=== PATIENT | female | born 1950 | race Caucasian/White ===

== ENCOUNTER 2020-02-01 13:01 | Outpatient (CLI) | payer MEDICARE, OTHER | END 2020-02-01 13:04 | disposition home or self-care (01) | LOC: D.MAMMO 13:01 → EDBD 16:15 → D.MAMMO 16:15 | PROVIDERS: ATTEND Nurse Practitioner Family | DX: Z12.31 Encounter for screening mammogram for malignant neoplasm of breast (principal) ==

== ENCOUNTER → 2020-03-07 07:36 | Outpatient (CLI) | payer MEDICARE, OTHER | END | disposition home or self-care (01) | LOC: D.MRI 07:36 | PROVIDERS: ATTEND Clinical Nurse Specialist Family Health | DX: M48.061 Spinal stenosis, lumbar region without neurogenic claudication (principal) ==

== ENCOUNTER 2020-04-20 10:30 | Emergency (ER) | payer MEDICARE, OTHER ==
[~2020-04-20] VITALS: Ht 157.5 cm; Wt 153.2 kg
[2020-04-20 10:40] VITALS: Ht 157.5 cm; Wt 153.2 kg
[2020-04-20] MEDS ORDERED: NORVASC5 MG (11:26)
[2020-04-20] MEDS ORDERED: PLAVIX75 MG PO (11:26)
[2020-04-20] MEDS ORDERED: VOLTAREN100 GM TOPICAL (11:27)
[2020-04-20] MEDS ORDERED: MOBIC7.5 MG PO (11:27)
[2020-04-20] MEDS ORDERED: NEURONTIN600 MG PO (11:27)
[2020-04-20] MEDS ORDERED: METOPROLOL TART50 MG PO (11:28)
[2020-04-20] MEDS ORDERED: CRESTOR5 MG PO (11:28)
[2020-04-20] MEDS ORDERED: ALDACTONE25 MG PO (11:29)
[2020-04-20] MEDS ORDERED: HYDROCODON-ACE1 EAC7 PO (12:11)
[2020-04-20 12:36] VITALS: BP 137/54
== END 2020-04-20 12:36 | disposition home or self-care (01) ==
LOC: D.ER 10:30
DX: S09.90XA Unspecified injury of head, initial encounter (principal); S50.02XA Contusion of left elbow, initial encounter; S80.02XA Contusion of left knee, initial encounter; I10 Essential (primary) hypertension; W01.190A Fall on same level from slipping, tripping and stumbling with subsequent striking against furniture, initial encounter; Y93.9 Activity, unspecified; Y92.9 Unspecified place or not applicable; Z79.01 Long term (current) use of anticoagulants

== ENCOUNTER → 2020-04-24 08:35 | Outpatient (CLI) | payer MEDICARE, OTHER ==
[2020-04-20 10:40] VITALS: BMI 61.8
--- NOTE | ~2020-04-24 | EC ---
PATIENT:LARISA ELLIS DATE OF SERVICE: 04/24/20 SEX: F MEDICAL RECORD: [id number] DATE OF : 52 [facility] AGE OF PATIENT: 69 ADMISSION DATE: 04/24/20 REFERRING PHYSICIAN: INTERPRETING PHYSICIAN: ZEFERINO CAMPA MD ECHOCARDIOGRAM REPORT ECHO CHARGES 4 ECHO COMPLETE Date: 04/24/20 CLINICAL DIAGNOSIS: ASSESS AORITC VAVLE/EF RECENT EDEMA ECHOCARDIOGRAPHIC MEASUREMENTS (adult normal given) AC root (d.<3.7cm) 2.7 cm LV Septum d (<1.2 cm> 1.3 cm Valve Excursion 1.2 cm LV Septum (systole) 1.6 cm Left Atria (s.<4.0cm> 4.4 cm LVPW d(<1.2cm) 1.3 cm RV (d.<2.3cm) 4.2 cm LVPW (sytole) 1.6 cm LV diastole(<5.6CM) 4.6 cm MV E-F(>70mm/sec) cm LV systole 3.3 cm LVOT Diameter 1.7 cm MV exc.(>10mm) 1.5 cm Est.ejection fraction (50-75%) % DOPPLER: LVIT cm/sec A 65.0 cm/sec E 77.0 cm/sec LA cm/sec RVSP 14 mmHg LVOT 124 cm/sec AOP1/2T m/s Asc. Ao 143 cm/sec RVOT 111 cm/sec RA cm/sec PA 126 cm/sec AV Gradient Peak 8.19 mmHg AV Mean 4.03 mmHg AV Area 2.5 cm MV Gradient Peak 3.51 mmHg MV Mean 1.68 mmHg MV Area cm COMMENTS: Instrument Operator: 2 TRISHA SINGH Legal Administrative Assistant: 3 Dr. Claudio TAPE# PACS Pericardial Effusion N DATE OF SERVICE: Adequate 2D, color flow imaging, spectral Doppler, and M-Mode. Mild LVH. LV internal dimensions are normal. Wall motion is normal. EF is greater than or equal to 55%. Aortic valve is sclerotic. No evidence of stenosis by Doppler interrogation. Left atrium is dilated at 4.4 cm. Mitral valve shows no prolapse. Trace MR. Right-sided chambers are grossly normal. Trace TR. ECHOCARDIOGRAM REPORT [id number] LARISA ELLIS TRANSINT:[id number] Voice Confirmation ID: [id number] DOCUMENT ID: [id number] ZEFERINO CAMPA MD CC: [id number] DICTATION DATE: 04/25/20 1519 COAT CHECKER: 04/25/20 2359 DEP CLI 04/24/20 [place] [id number] [place] [id number]
[~2020-04-24 08:35] MED LIST: ALDACTONE25 MG PO; CRESTOR5 MG PO; HYDROCODON-ACE1 EAC7 PO; METOPROLOL TART50 MG PO; MOBIC7.5 MG PO; NEURONTIN600 MG PO; NORVASC5 MG; PLAVIX75 MG PO; VOLTAREN100 GM TOPICAL
== END | disposition home or self-care (01) ==
LOC: D.HCCECHO 08:30
PROVIDERS: ATTEND Internal Medicine Interventional Cardiology
DX: I35.0 Nonrheumatic aortic (valve) stenosis (principal)

== ENCOUNTER 2020-11-02 18:40 | Inpatient (IN) | payer MEDICARE, OTHER ==
[~2020-11-02] VITALS: Ht 157.5 cm; Wt 147.7 kg
[2020-11-02 20:07] LABS: BASOPHILS 0.1 % (0-2); EOSINOPHILS 0.8 % (0-7); HEMATOCRIT 42.4 % (36.0-48.0); HEMOGLOBIN 14.2 g/dL (12-16); IMMATURE GRANULOCYTES 0.5 % (0-5); LYMPHOCYTE ABS# 1.48 10x3/uL (1.18-3.74); LYMPHOCYTES 8.5 % (15-50); MCH 30.1 pg (26.0-34.0); MCHC 33.5 g/dL (31.0-37.0); MEAN PLATELET VOLUME 11.1 fL (7.4-10.4); MONOCYTES 5.1 % (2-11); NEUTROPHIL ABS# 14.72 10x3/uL (1.56-6.13); PLATELET COUNT 189 10x3/uL (130-400); RBC 4.71 10x6/uL (4.00-5.40); RDW 13.2 % (11.5-14.5); WBC 17.3 10x3/uL (4.8-10.8)
[2020-11-02 20:53] LABS: ANION GAP 19.1 mmol/L (8-16); CREATININE - SERUM 1.3 mg/dL (0.6-1.3); POTASSIUM - SERUM 4.1 mmol/L (3.5-5.1)
[2020-11-02 21:25] LABS: NITRITE POSITIVE (NEGATIVE)
[2020-11-02 21:26] LABS: BILIRUBIN NEGATIVE (NEGATIVE); KETONE NEGATIVE (NEGATIVE); SQUAMOUS EPITHELIAL 0-5 HPF (0-4); UROBILINOGEN NORMAL mg/dL (< 2)
[2020-11-02 21:27] LABS: BACTERIA MODERATE HPF (NONE SEEN)
--- NOTE | 2020-11-03 00:12 | NUR ---
PT TO ROOM FROM ER
[2020-11-03 00:28] VITALS: BP 129/81
[2020-11-03 00:51] VITALS: BP 129/81; Ht 157.5 cm; Wt 147.7 kg
--- NOTE | 2020-11-03 03:27 | NUR ---
RECEIVED PATIENT FROM ER WITH UTI, STEPHANIE. SHE HAS A KIDNEY STONE IN THE URTEROVERSICAL JUNCTION. ON ARRIVAL SHE WAS AWAKE, ALERT AND ORIENTED X 3. SHE WAS GIVEN LATER IN THE SHIFT MORPINE IV FOR PAIN AND SHE IS CURRENTLY RESTING NOW. BED IN LOW POSITION. SIDE RAILS UP X 2, CALL LIGHT WITHIN REACH.
--- NOTE | 2020-11-03 04:55 | NUR ---
REPORT GIVEN TO BURT, PATIENT BEING TRANSFERRED 2200.
[2020-11-03 06:33] LABS: ANION GAP 14.8 mmol/L (8-16); CALCIUM 8.4 mg/dL (8.5-10.1); CARBON DIOXIDE 25.3 mmol/L (21.0-32.0); CREATININE - SERUM 1.2 mg/dL (0.6-1.3); MAGNESIUM - SERUM 1.7 mg/dL (1.8-2.4); PHOSPHOROUS 4.1 mg/dL (2.5-4.9); POTASSIUM - SERUM 4.1 mmol/L (3.5-5.1)
[2020-11-03 06:54] LABS: BASOPHILS 0.1 % (0-2); EOSINOPHILS 0.3 % (0-7); HEMATOCRIT 38.6 % (36.0-48.0); HEMOGLOBIN 12.5 g/dL (12-16); IMMATURE GRANULOCYTES 0.2 % (0-5); LYMPHOCYTE ABS# 0.38 10x3/uL (1.18-3.74); LYMPHOCYTES 2.7 % (15-50); MCH 29.6 pg (26.0-34.0); MCHC 32.4 g/dL (31.0-37.0); MCV 91.5 fL (80.0-100.0); MEAN PLATELET VOLUME 10.8 fL (7.4-10.4); MONOCYTES 3.3 % (2-11); NEUTROPHIL ABS# 13.19 10x3/uL (1.56-6.13); NEUTROPHILS 93.4 % (40-80); PLATELET COUNT 162 10x3/uL (130-400); RBC 4.22 10x6/uL (4.00-5.40); RDW 13.3 % (11.5-14.5); WBC 14.1 10x3/uL (4.8-10.8)
[2020-11-03 06:57] LABS: APTT 26.7 SECONDS (22.8-39.4)
[2020-11-03 06:58] LABS: INR 1.16 (0.85-1.17); PROTIME 13.7 SECONDS (11.6-15.0)
[2020-11-03 08:46] VITALS: BP 111/46
--- NOTE | 2020-11-03 10:41 | NUR ---
0700 BEDSIDE REPORT RECEIVED AWAKE ALERT ASSIST X 1 TO BSC VOIDED REPOSITIONED IN BED TO EAT BREAKFAST
[2020-11-03 12:00] VITALS: BP 127/61
--- NOTE | 2020-11-03 15:37 | NUR ---
1000 TOMLIN INSERTED BY STUDENT INSTRUCTOR WITH GLYNN URINE IN RETURN STAT LOCK PLACED
--- NOTE | 2020-11-03 15:39 | NUR ---
1300 SPOUSE BROUGHT PTS C-PAP AND CARLYLE BOLAND FROM [facility] SPOUSE PUT THE HOSE ON PT
[2020-11-03 17:11] VITALS: BP 121/50
[2020-11-03 21:13] VITALS: BP 121/56
[2020-11-04 00:38] VITALS: BP 130/50
--- NOTE | 2020-11-04 02:29 | NUR ---
Assumed care of pt after report/rounds last evening. Pt's Spouse and daughter in room. Pt was c/o pain to RAC IV site on rounds with day nurse. IV fluids shut off. No increased warmth, edema or increased bruising around site. Resited to Lt upper arm on 2nd try. First attempt to LFA was unsuccessful. IV fuids currently infusing per order without s/sx of infiltrate or c/o pain/discomfort. Pt continues on O2 via NC with RT assisting her to set up CPAP from home last noc and administer breahing treatment as pt coughing with IS use. Thorne remains patent but urine remains dark carlos and concentrated. Only c/o pain initially in night. Resting in bed at this time and has had no further c/o pain/discomfort.
--- NOTE | 2020-11-04 02:48 | NUR ---
Pt's daughter brought in all pills from home. Did discuss the importance of Nursing administering medications so provider and staff know what pt is taking. Both daughter and pt verbalized understanding.
[2020-11-04 05:24] VITALS: BP 121/47
[2020-11-04 08:14] LABS: BASOPHILS 0.1 % (0-2); EOSINOPHILS 0.7 % (0-7); HEMATOCRIT 34.3 % (36.0-48.0); HEMOGLOBIN 11.1 g/dL (12-16); IMMATURE GRANULOCYTES 0.4 % (0-5); LYMPHOCYTE ABS# 0.63 10x3/uL (1.18-3.74); LYMPHOCYTES 5.9 % (15-50); MCH 29.7 pg (26.0-34.0); MCHC 32.4 g/dL (31.0-37.0); MCV 91.7 fL (80.0-100.0); MEAN PLATELET VOLUME 10.3 fL (7.4-10.4); MONOCYTES 2.2 % (2-11); NEUTROPHILS 90.7 % (40-80); PLATELET COUNT 134 10x3/uL (130-400); RBC 3.74 10x6/uL (4.00-5.40); RDW 13.2 % (11.5-14.5); WBC 10.7 10x3/uL (4.8-10.8)
[2020-11-04 08:31] LABS: ANION GAP 11.6 mmol/L (8-16); CALCIUM 8.4 mg/dL (8.5-10.1); CARBON DIOXIDE 24.6 mmol/L (21.0-32.0); MAGNESIUM - SERUM 1.9 mg/dL (1.8-2.4); POTASSIUM - SERUM 4.2 mmol/L (3.5-5.1)
[2020-11-04 08:32] LABS: PHOSPHOROUS 2.9 mg/dL (2.5-4.9)
[2020-11-04 09:29] VITALS: BP 124/83
[2020-11-04 13:36] VITALS: BP 140/78
[2020-11-04 14:22] VITALS: BP 140/78
[2020-11-04 19:04] VITALS: BP 159/79
--- NOTE | 2020-11-05 03:45 | NUR ---
Assumed care of pt after report/rounds. Pt remains A&OX4 and verbalizes wants/needs clearly and without dfficulty or hesitation. Pt's spouse and daughter in with her at begining of shift and left around 2300. Pt's IV continues to infuse through patent IV site with dressing changed to ensure maintenance of same. There is some bruising around IV site and prior sites. Pt continues to utilize CPAP at night and working with RT. Exp. wheeze heard on auscultation to BUL's. Pt did begin having a productive cough but, it is clear and has sputum collection container. Pt's easton remains patent and urine is clear now and much less concentrated. Pt teaching re:increase in BP med. Pt was caught trying to self transfer. Safety teaching done. In bed resting at this time. No c/o pain/discomfort.
[2020-11-05 05:28] LABS: BASOPHILS 0 % (0-2); EOSINOPHILS 1.2 % (0-7); HEMATOCRIT 33.9 % (36.0-48.0); HEMOGLOBIN 10.7 g/dL (12-16); IMMATURE GRANULOCYTES 0.2 % (0-5); LYMPHOCYTE ABS# 0.58 10x3/uL (1.18-3.74); LYMPHOCYTES 6.5 % (15-50); MCH 29.2 pg (26.0-34.0); MCHC 31.6 g/dL (31.0-37.0); MCV 92.4 fL (80.0-100.0); MEAN PLATELET VOLUME 10.9 fL (7.4-10.4); MONOCYTES 5.4 % (2-11); NEUTROPHIL ABS# 7.74 10x3/uL (1.56-6.13); NEUTROPHILS 86.7 % (40-80); PLATELET COUNT 138 10x3/uL (130-400); RBC 3.67 10x6/uL (4.00-5.40); RDW 13.3 % (11.5-14.5); WBC 8.9 10x3/uL (4.8-10.8)
[2020-11-05 05:48] LABS: ANION GAP 11.7 mmol/L (8-16); CALCIUM 8.6 mg/dL (8.5-10.1); CARBON DIOXIDE 25.8 mmol/L (21.0-32.0); CREATININE - SERUM 0.9 mg/dL (0.6-1.3); PHOSPHOROUS 3.1 mg/dL (2.5-4.9); POTASSIUM - SERUM 4.5 mmol/L (3.5-5.1)
[2020-11-05 06:42] VITALS: BP 107/47
[2020-11-05 09:47] VITALS: BP 126/65
[2020-11-05 13:51] VITALS: BP 111/40
[2020-11-05 18:20] VITALS: BP 125/94
--- NOTE | 2020-11-05 19:19 | NUR ---
Assumed care of pt after report/rounds. Pt is A&Ox4 and verbalizes wants/needs clearly and without hesitation or difficulty. Pt did recieve a one time dose of lasix IV. Day nurse emptied cath just before administration and pt has had 2100 output of clear yellow fluid since administration but, continues to have coarse sounding julio on auscultation. Pt also significantly changed in ADL's and looking sicker than the last few days with this nurse. Called Bharat, STOREHOUSE CLERK o/c and order rec'd for stat CXR and stopping fluids. Same will be done.
[2020-11-05 22:06] VITALS: BP 133/52
--- NOTE | 2020-11-06 03:57 | NUR ---
Pt has rested well this night. IV continues to remain on hold per order. Did request pain medication this night and effective for pain relief. Cath rmains draining well with clear yellow urine.
[2020-11-06 07:01] LABS: BASOPHILS 0 % (0-2); EOSINOPHILS 1.4 % (0-7); HEMATOCRIT 33.1 % (36.0-48.0); HEMOGLOBIN 10.6 g/dL (12-16); IMMATURE GRANULOCYTES 0.2 % (0-5); LYMPHOCYTE ABS# 0.79 10x3/uL (1.18-3.74); LYMPHOCYTES 8.7 % (15-50); MCH 29.3 pg (26.0-34.0); MCV 91.4 fL (80.0-100.0); MEAN PLATELET VOLUME 10.2 fL (7.4-10.4); MONOCYTES 6.2 % (2-11); NEUTROPHIL ABS# 7.58 10x3/uL (1.56-6.13); NEUTROPHILS 83.5 % (40-80); PLATELET COUNT 146 10x3/uL (130-400); RBC 3.62 10x6/uL (4.00-5.40); RDW 13.1 % (11.5-14.5); WBC 9.1 10x3/uL (4.8-10.8)
[2020-11-06 07:17] LABS: ANION GAP 11.8 mmol/L (8-16); CALCIUM 8.5 mg/dL (8.5-10.1); CARBON DIOXIDE 25.2 mmol/L (21.0-32.0); CREATININE - SERUM 0.9 mg/dL (0.6-1.3); MAGNESIUM - SERUM 1.8 mg/dL (1.8-2.4)
[2020-11-06 08:13] VITALS: BP 130/46
[2020-11-06 12:44] VITALS: BP 134/59
[2020-11-06 17:06] VITALS: BP 122/61
--- NOTE | 2020-11-06 19:16 | NUR ---
1500 - TOMLIN CATHETER REMOVED ORDERED. WILL CONTINUE TO MONITOR.
[2020-11-07] VITALS: BP 108/71
[2020-11-07 04:00] VITALS: BP 130/64
[2020-11-07 06:25] LABS: CALC OSMOLALITY 279 mosm/kg (275-300); CALCIUM 8.7 mg/dL (8.5-10.1); CARBON DIOXIDE 28.3 mmol/L (21.0-32.0); CHLORIDE - SERUM 103 mmol/L (98-107); CREATININE - SERUM 0.8 mg/dL (0.6-1.3); GLUCOSE 129 mg/dL (74-106); MAGNESIUM - SERUM 1.9 mg/dL (1.8-2.4); PHOSPHOROUS 3.9 mg/dL (2.5-4.9); SODIUM 139 mmol/L (136-145); UREA NITROGEN 12 mg/dL (7-18); eGFR NON AFRICAN AMERICAN 75 mL/min (90-120)
[2020-11-07 06:47] LABS: BASOPHILS 0.1 % (0-2); EOSINOPHILS 2.2 % (0-7); HEMOGLOBIN 11.5 g/dL (12-16); IMMATURE GRANULOCYTES 0.6 % (0-5); LYMPHOCYTE ABS# 1.09 10x3/uL (1.18-3.74); LYMPHOCYTES 13.9 % (15-50); MCH 29.7 pg (26.0-34.0); MCHC 32.9 g/dL (31.0-37.0); MCV 90.4 fL (80.0-100.0); MEAN PLATELET VOLUME 10.3 fL (7.4-10.4); MONOCYTES 7.9 % (2-11); NEUTROPHIL ABS# 5.92 10x3/uL (1.56-6.13); NEUTROPHILS 75.3 % (40-80); RBC 3.87 10x6/uL (4.00-5.40); RDW 13.1 % (11.5-14.5); WBC 7.9 10x3/uL (4.8-10.8)
[2020-11-07 06:48] LABS: PLATELET COUNT 178 10x3/uL (130-400)
--- NOTE | 2020-11-07 08:12 | MORECARE ---
CASE MANAGEMENT DISCHARGE SUMMARY PATIENT: LARISA ELLIS UNIT: [id number] ADM DATE: 11/03/20 AGE: 70 : 51 SEX: F ROOM/BED: D.2201 AUTHOR: CHAY DOTY PHYSICIAN: REFERRING PHYSICIAN: MERI DESIR MD DATE OF SERVICE: 11/07/20 Case Management Discharge Planning Summary DCP REVIEW SUMMARY ANTICIPATED D/C DATE: EXPECTED LOS : CASE STATUS: DCP Initiated INITIAL REVIEW: 11/02/2020 INITIAL REVIEWER: Violet Goodwin FINAL DISCHARGE DISPOSITION: : FINAL REVIEWER: FINAL REVIEW DATE: DCP Focus Questions & Answers DCP Screen QUESTION: ANSWER High Risk Factors: : Hosp related to CHF, COPD, DM, End Stage Ds, CVA, CA DCP Evaluation QUESTION: ANSWER Patient gives permission to discuss discharge plans with: (name, relationship and number) : daughter and spouse Patient's ability to cope with chronic illness : c. Inadequate (3+ ED visits in 6 mos., readmits within 30 days, 2+ hospital admissions in 1 yr.) Family / Caregiver's ability to cope with chronic illness: : a. Adequate (ability to meet patient's medical needs, ensures patient attends medical appts.) Physical Status: : Mobility impaired Physical Status: : Compromised skin integrity Living Arrangements: : Home with Spouse/Significant Other Partial Dependence, assistance required for: : Ambulation / Mobility Living arrangements comments: : lives with spouse and daughter Baseline cognitive status: : *Oriented to person, place, situation, time and present Medication Management: : Patient states can afford medications [facility] name([facility]): : [facility] Does Patient have transportation to get home and to follow-up medical appointments when discharged from the hospital? : Yes Comments: : Mar figueroa Would patient like to participate in any Care Coordination programs (if applicable): : Not applicable Does the patient have electricity at home? : Yes Does the patient have running water in their house? : Yes Equipment in use: : Walker - Rollator Equipment in use: : Other Equipment in use: : CPAP Other Equipment comments: : walk in tub compression wraps and lymphedema pump Equipment agency name and contact information: : [facility] [place] [facility] Mental health screen: : No mental health history Psychosocial status: : Independent adult (65+) Abuse/Neglect: : None DCP Re-evaluation QUESTION: ANSWER Would patient like to participate in any Care Coordination programs (if applicable): : Not applicable PATIENT: LARISA ELLIS ENCOUNTER: [id number] MEDICAL RECORD#: [id number] ADMISSION DATE: 11/03/2020 DISCHARGE DATE: ATTENDING MD: MERI PARRY : AGE: 70 MARITAL STATUS: M DC PLAN ID: [id number] FACILITY: [facility] PRINTED ON: 11/07/20 8:12 CT All edits/amendments must be made on the electronic document DICTATION DATE: 11/07/20811 SUPERVISOR COKE HANDLING: ARIA 11/07/20811 RPT#: [id number] DC DATE: STATUS: ADM IN [facility] [address] [place] [address] END OF REPORT
--- NOTE | 2020-11-07 08:24 | MORECARE ---
CASE MANAGEMENT DISCHARGE SUMMARY PATIENT: LARISA ELLIS UNIT: [id number] ADM DATE: 11/03/20 AGE: 70 : 51 SEX: F ROOM/BED: D.2201 AUTHOR: LALITHA,DOC PHYSICIAN: REFERRING PHYSICIAN: MERI DESIR MD DATE OF SERVICE: 11/07/20 Case Management Discharge Planning Summary COMMENTS ENTERED DATE: 11/07/20 8:13 CT COMMENT TYPE: Discharge Planning REVIEWER: Violet Goodwin LATE ENTRY 11/06/20 AT 1215 CM met with patient & adult daughter to complete initial dc planning assessment. CM educated patient on the CM role and verbal consent given by patient to complete assessment. Patient lives at home with her spouse and daughter where she was independent with her care. Patient would like to discuss her discharge plan with her spouse prior to making a decision. Patients PCP is [facility] and she uses [facility] on [address]. There are 3 steps in her home. CM discussed availability of home health, rehab services, and medical equipment. She has a Rollator ( it is in the room ) a walker, lymphedema pump with compression wraps ( [facility]) A home CAP from [facility]. IMM served and explained. AUBREE also signed for the possibility of inpatient rehab. They will let me know on Friday on what they decide. Patient denied known discharge needs at this time. CM will continue to follow and will assist as needed with dc plans/needs. DCP REVIEW SUMMARY ANTICIPATED D/C DATE: EXPECTED LOS : CASE STATUS: DCP Initiated INITIAL REVIEW: 11/02/2020 INITIAL REVIEWER: Violet Goodwin FINAL DISCHARGE DISPOSITION: : FINAL REVIEWER: FINAL REVIEW DATE: DCP Focus Questions & Answers DCP Screen QUESTION: ANSWER High Risk Factors: : Hosp related to CHF, COPD, DM, End Stage Ds, CVA, CA DCP Evaluation QUESTION: ANSWER Patient and/or caregiver agree upon recommended discharge plan? : Yes Family / Caregiver's ability to cope with chronic illness: : a. Adequate (ability to meet patient's medical needs, ensures patient attends medical appts.) Patient's current cognitive status: : *Oriented to person, place, situation, time and present Patient gives permission to discuss discharge plans with: (name, relationship and number) : daughter and spouse Patient's ability to cope with chronic illness : c. Inadequate (3+ ED visits in 6 mos., readmits within 30 days, 2+ hospital admissions in 1 yr.) Alternate discharge plan (if recommended plan not agreed upon by patient and/or caregiver): : home with home health Does the patient have the ability to pay for or attain post discharge needs / services? : Yes Functional screen assessment: : New onset in difficulty in gait, balance, or transfer difficulties Family / Caregiver's ability to cope with chronic illness: : a. Adequate (ability to meet patient's medical needs, ensures patient attends medical appts.) Physical Status: : Mobility impaired Physical Status: : Compromised skin integrity Equipment needed for post hospitalization: : Home Oxygen with Nasal Cannula Is there a likelihood that the patient will require additional services to return to the preadmission environment? : Yes Functional screen comments: : weak,may need rehab Living Arrangements: : Home with Spouse/Significant Other Partial Dependence, assistance required for: : Ambulation / Mobility Other Equipment comments: : may need home o2?? asking for a nebulizer Results of this evaluation have been discussed with: : Children Patient with capacity for self-care or can be cared for in same environment as prior to hospitalization? : Yes Living arrangements comments: : lives with spouse and daughter Baseline cognitive status: : *Oriented to person, place, situation, time and present Physical environment modification needed / anticipated for discharge: : No Medication Management: : Patient states can afford medications Planned post hospital services available for patient? : Yes [facility]acy name(s): : [facility] Planned post hospital services covered by insurance plan? : Yes Does Patient have transportation to get home and to follow-up medical appointments when discharged from the hospital? : Yes Comments: : daughterMar Would patient like to participate in any Care Coordination programs (if applicable): : Not applicable Does the patient have electricity at home? : Yes Does the patient have running water in their house? : Yes Equipment in use: : Walker - Rollator Equipment in use: : Other Equipment in use: : CPAP Other Equipment comments: : walk in tub compression wraps and lymphedema pump Equipment agency name and contact information: : [facility] Mental health screen: : No mental health history Psychosocial status: : Independent adult (65+) Abuse/Neglect: : None DCP Re-evaluation QUESTION: ANSWER Would patient like to participate in any Care Coordination programs (if applicable): : Not applicable PATIENT: LARISA ELLIS ENCOUNTER: [id number] MEDICAL RECORD#: [id number] ADMISSION DATE: 11/03/2020 DISCHARGE DATE: ATTENDING MD: MERI PARRY : AGE: 70 MARITAL STATUS: M DC PLAN ID: [id number] FACILITY: [facility] PRINTED ON: 11/07/20 8:24 CT All edits/amendments must be made on the electronic document DICTATION DATE: 11/07/20822 MESS ATTENDANT CREW: DM 11/07/20822 RPT#: [id number] DC DATE: STATUS: ADM IN [facility] [address] [place] [address] END OF REPORT
--- NOTE | 2020-11-07 10:02 | MORECARE ---
CASE MANAGEMENT DISCHARGE SUMMARY PATIENT: LARISA ELLIS UNIT: [id number] ADM DATE: 11/03/20 AGE: 70 : 51 SEX: F ROOM/BED: D.2201 AUTHOR: LALITHA,DOC PHYSICIAN: REFERRING PHYSICIAN: MERI DESRI MD DATE OF SERVICE: 11/07/20 Case Management Discharge Planning Summary COMMENTS ENTERED DATE: 11/07/20 9:49 CT COMMENT TYPE: Discharge Planning REVIEWER: Violet Goodwin SPOKE WITH PATIENT AND SPOUSE THIS MORNING ABOUT INPATIENT REHAB SHE WOULD LIKE TO STAY HERE AT [facility] FOR REHAB IF POSSIBLE SHE IS WORRIED ABOUT HER SECOND COVID SHOT. SHE STATED THAT SHE IS SUPPOSE TO GET HER 2ND MODERMA VACCINE ON THE OF THIS MONTH. I SPOKE WITH DARIA GAMBLE RN ABOUT THIS CM TO FOLLOW AND ASSIST ENTERED DATE: 11/07/20 8:13 CT COMMENT TYPE: Discharge Planning REVIEWER: Violet Goodwin LATE ENTRY 11/06/20 AT 1215 CM met with patient & adult daughter to complete initial dc planning assessment. CM educated patient on the CM role and verbal consent given by patient to complete assessment. Patient lives at home with her spouse and daughter where she was independent with her care. Patient would like to discuss her discharge plan with her spouse prior to making a decision. Patients PCP is [facility] and she uses [facility] on [address]. There are 3 steps in her home. CM discussed availability of home health, rehab services, and medical equipment. She has a Rollator ( it is in the room ) a walker, lymphedema pump with compression wraps ( [facility]) A home CAP from [facility]. IMM served and explained. AUBREE also signed for the possibility of inpatient rehab. They will let me know on Friday on what they decide. Patient denied known discharge needs at this time. CM will continue to follow and will assist as needed with dc plans/needs. DCP REVIEW SUMMARY ANTICIPATED D/C DATE: EXPECTED LOS : CASE STATUS: DCP Initiated INITIAL REVIEW: 11/02/2020 INITIAL REVIEWER: Violet Christa FINAL DISCHARGE DISPOSITION: : FINAL REVIEWER: FINAL REVIEW DATE: DCP Focus Questions & Answers DCP Screen QUESTION: ANSWER High Risk Factors: : Hosp related to CHF, COPD, DM, End Stage Ds, CVA, CA DCP Evaluation QUESTION: ANSWER Patient and/or caregiver agree upon recommended discharge plan? : Yes Family / Caregiver's ability to cope with chronic illness: : a. Adequate (ability to meet patient's medical needs, ensures patient attends medical appts.) Patient's current cognitive status: : *Oriented to person, place, situation, time and present Patient gives permission to discuss discharge plans with: (name, relationship and number) : daughter and spouse Patient's ability to cope with chronic illness : c. Inadequate (3+ ED visits in 6 mos., readmits within 30 days, 2+ hospital admissions in 1 yr.) Alternate discharge plan (if recommended plan not agreed upon by patient and/or caregiver): : home with home health Does the patient have the ability to pay for or attain post discharge needs / services? : Yes Functional screen assessment: : New onset in difficulty in gait, balance, or transfer difficulties Family / Caregiver's ability to cope with chronic illness: : a. Adequate (ability to meet patient's medical needs, ensures patient attends medical appts.) Physical Status: : Mobility impaired Physical Status: : Compromised skin integrity Equipment needed for post hospitalization: : Home Oxygen with Nasal Cannula Is there a likelihood that the patient will require additional services to return to the preadmission environment? : Yes Functional screen comments: : weak,may need rehab Living Arrangements: : Home with Spouse/Significant Other Partial Dependence, assistance required for: : Ambulation / Mobility Other Equipment comments: : may need home o2?? asking for a nebulizer Results of this evaluation have been discussed with: : Children Patient with capacity for self-care or can be cared for in same environment as prior to hospitalization? : Yes Living arrangements comments: : lives with spouse and daughter Baseline cognitive status: : *Oriented to person, place, situation, time and present Physical environment modification needed / anticipated for discharge: : No Medication Management: : Patient states can afford medications Planned post hospital services available for patient? : Yes Pharm[facility]): : [facility] Planned post hospital services covered by insurance plan? : Yes Does Patient have transportation to get home and to follow-up medical appointments when discharged from the hospital? : Yes Comments: : daughterMar Would patient like to participate in any Care Coordination programs (if applicable): : Not applicable Does the patient have electricity at home? : Yes Does the patient have running water in their house? : Yes Equipment in use: : Walker - Rollator Equipment in use: : Other Equipment in use: : CPAP Other Equipment comments: : walk in tub compression wraps and lymphedema pump Equipment agency name and contact information: : [facility] Mental health screen: : No mental health history Psychosocial status: : Independent adult (65+) Abuse/Neglect: : None DCP Re-evaluation QUESTION: ANSWER Would patient like to participate in any Care Coordination programs (if applicable): : Not applicable PATIENT: LARISA ELLIS ENCOUNTER: [id number] MEDICAL RECORD#: [id number] ADMISSION DATE: 11/03/2020 DISCHARGE DATE: ATTENDING MD: MERI PARRY : AGE: 70 MARITAL STATUS: M DC PLAN ID: [id number] FACILITY: [facility] PRINTED ON: 11/07/20 10:02 CT All edits/amendments must be made on the electronic document DICTATION DATE: 11/07/20 1002 CLIENT CONSULTANT: ARIA 11/07/20 1002 RPT#: [id number] DC DATE: STATUS: ADM IN [facility] [address] [place] [address] END OF REPORT
[2020-11-07 10:23] VITALS: BP 146/81
--- NOTE | 2020-11-07 10:36 | MORECARE ---
CASE MANAGEMENT DISCHARGE SUMMARY PATIENT: LARISA ELLIS UNIT: [id number] ADM DATE: 11/03/20 AGE: 70 : 51 SEX: F ROOM/BED: D.2201 AUTHOR: LALITHA,DOC PHYSICIAN: REFERRING PHYSICIAN: MERI DESIR MD DATE OF SERVICE: 11/07/20 Case Management Discharge Planning Summary COMMENTS ENTERED DATE: 11/07/20 9:49 CT COMMENT TYPE: Discharge Planning REVIEWER: Violet Goodwin SPOKE WITH PATIENT AND SPOUSE THIS MORNING ABOUT INPATIENT REHAB SHE WOULD LIKE TO STAY HERE AT [facility] FOR REHAB IF POSSIBLE SHE IS WORRIED ABOUT HER SECOND COVID SHOT. SHE STATED THAT SHE IS SUPPOSE TO GET HER 2ND MODERMA VACCINE ON THE OF THIS MONTH. I SPOKE WITH DARIA GAMBLE RN ABOUT THIS CM TO FOLLOW AND ASSIST ENTERED DATE: 11/07/20 8:13 CT COMMENT TYPE: Discharge Planning REVIEWER: Violet Goodwin LATE ENTRY 11/06/20 AT 1215 CM met with patient & adult daughter to complete initial dc planning assessment. CM educated patient on the CM role and verbal consent given by patient to complete assessment. Patient lives at home with her spouse and daughter where she was independent with her care. Patient would like to discuss her discharge plan with her spouse prior to making a decision. Patients PCP is Radha Pop APN and she uses [facility] on [address] There are 3 steps in her home. CM discussed availability of home health, rehab services, and medical equipment. She has a Rollator ( it is in the room ) a walker, lymphedema pump with compression wraps ( [facility]) A home CAP from [facility]. IMM served and explained. AURBEE also signed for the possibility of inpatient rehab. They will let me know on Friday on what they decide. Patient denied known discharge needs at this time. CM will continue to follow and will assist as needed with dc plans/needs. DCP REVIEW SUMMARY ANTICIPATED D/C DATE: EXPECTED LOS : CASE STATUS: DCP Initiated INITIAL REVIEW: 11/02/2020 INITIAL REVIEWER: Violet Christa FINAL DISCHARGE DISPOSITION: : FINAL REVIEWER: FINAL REVIEW DATE: DCP Focus Questions & Answers DCP Screen QUESTION: ANSWER High Risk Factors: : Hosp related to CHF, COPD, DM, End Stage Ds, CVA, CA DCP Evaluation QUESTION: ANSWER Patient and/or caregiver agree upon recommended discharge plan? : Yes Family / Caregiver's ability to cope with chronic illness: : a. Adequate (ability to meet patient's medical needs, ensures patient attends medical appts.) Patient's current cognitive status: : *Oriented to person, place, situation, time and present Patient gives permission to discuss discharge plans with: (name, relationship and number) : daughter and spouse Patient's ability to cope with chronic illness : c. Inadequate (3+ ED visits in 6 mos., readmits within 30 days, 2+ hospital admissions in 1 yr.) Alternate discharge plan (if recommended plan not agreed upon by patient and/or caregiver): : home with home health Does the patient have the ability to pay for or attain post discharge needs / services? : Yes Functional screen assessment: : New onset in difficulty in gait, balance, or transfer difficulties Family / Caregiver's ability to cope with chronic illness: : a. Adequate (ability to meet patient's medical needs, ensures patient attends medical appts.) Physical Status: : Mobility impaired Physical Status: : Compromised skin integrity Equipment needed for post hospitalization: : Home Oxygen with Nasal Cannula Is there a likelihood that the patient will require additional services to return to the preadmission environment? : Yes Functional screen comments: : weak,may need rehab Living Arrangements: : Home with Spouse/Significant Other Partial Dependence, assistance required for: : Ambulation / Mobility Other Equipment comments: : may need home o2?? asking for a nebulizer Results of this evaluation have been discussed with: : Children Patient with capacity for self-care or can be cared for in same environment as prior to hospitalization? : Yes Living arrangements comments: : lives with spouse and daughter Baseline cognitive status: : *Oriented to person, place, situation, time and present Physical environment modification needed / anticipated for discharge: : No Medication Management: : Patient states can afford medications Planned post hospital services available for patient? : Yes Pharmacy name(s): : [facility] Planned post hospital services covered by insurance plan? : Yes Does Patient have transportation to get home and to follow-up medical appointments when discharged from the hospital? : Yes Comments: : daughterMar Would patient like to participate in any Care Coordination programs (if applicable): : Not applicable Does the patient have electricity at home? : Yes Does the patient have running water in their house? : Yes Equipment in use: : Walker - Rollator Equipment in use: : Other Equipment in use: : CPAP Other Equipment comments: : walk in tub compression wraps and lymphedema pump Equipment agency name and contact information: : [employer]- cpap Mental health screen: : No mental health history Psychosocial status: : Independent adult (65+) Abuse/Neglect: : None DCP Re-evaluation QUESTION: ANSWER Would patient like to participate in any Care Coordination programs (if applicable): : Not applicable PATIENT: LARISA ELLIS ENCOUNTER: [id number] MEDICAL RECORD#: [id number] ADMISSION DATE: 11/03/2020 DISCHARGE DATE: ATTENDING MD: MERI PARRY : AGE: 70 MARITAL STATUS: M DC PLAN ID: [id number] FACILITY: [facility] PRINTED ON: 11/07/20 10:36 CT All edits/amendments must be made on the electronic document DICTATION DATE: 11/07/20 1036 ENERGY SALES CONSULTANT: ARIA 11/07/20 1036 RPT#: [id number] DC DATE: STATUS: ADM IN [facility] [address] [place] [address] END OF REPORT
--- NOTE | 2020-11-07 11:36 | NUR ---
REHAB PRESCREEN RECEIVED. UPON REVIEW OF HER CHART, PATIENT DOES NOT MEET THE INPATIENT CRITERIA. SHE DOES NOT SHOW A NEED FOR 3 HOURS OF THERAPY A DAY AND FOR A PHYSICIAN TO SEE HER 3-5 DAYS OF THE WEEK. I HAVE SPOKEN WITH KATE IN REGARDS TO THIS. THANK YOU FOR THE REFERRAL. DARIA GAMBLE RN CLINICAL LIAISON, INPATIENT REHAB.
--- NOTE | 2020-11-07 13:28 | NUR ---
O2 AT 4, PATIENT MIN ASST TO GET UP TO BEDSIDE AND TO STAND. PATIENT WALKED AROUND ROOM FOR 20 FEET USING CANE WITH MIN ASST. PATIENT NEEDED ASST WITH HER LEGS TO GET THEM BACK UP ON THE BED WHEN LAYING BACK DOWN.
--- NOTE | 2020-11-07 13:54 | MORECARE ---
CASE MANAGEMENT DISCHARGE SUMMARY PATIENT: LARISA ELLIS UNIT: [id number] ADM DATE: 11/03/20 AGE: 70 : 51 SEX: F ROOM/BED: D.2201 AUTHOR: LALITHA,DOC PHYSICIAN: REFERRING PHYSICIAN: MERI DESIR MD DATE OF SERVICE: 11/07/20 Case Management Discharge Planning Summary COMMENTS ENTERED DATE: 11/07/20 13:44 CT COMMENT TYPE: Discharge Planning REVIEWER: Violet Goodwin OUR INPATIENT REHAB WILL NOT ACCEPT THE PATIENT, I HAVE SENT IT TO [facility] TO SEE IF SHE IS A CANDIDATE FOR THEM CM TO FOLLOW AND ASSIST ENTERED DATE: 11/07/20 9:49 CT COMMENT TYPE: Discharge Planning REVIEWER: Violet Christa SPOKE WITH PATIENT AND SPOUSE THIS MORNING ABOUT INPATIENT REHAB SHE WOULD LIKE TO STAY HERE AT [facility] FOR REHAB IF POSSIBLE SHE IS WORRIED ABOUT HER SECOND COVID SHOT. SHE STATED THAT SHE IS SUPPOSE TO GET HER 2ND MODERMA VACCINE ON THE OF THIS MONTH. I SPOKE WITH DARIA GAMBLE RN ABOUT THIS CM TO FOLLOW AND ASSIST ENTERED DATE: 11/07/20 8:13 CT COMMENT TYPE: Discharge Planning REVIEWER: Violet Goodwin LATE ENTRY 11/06/20 AT 1215 CM met with patient & adult daughter to complete initial dc planning assessment. CM educated patient on the CM role and verbal consent given by patient to complete assessment. Patient lives at home with her spouse and daughter where she was independent with her care. Patient would like to discuss her discharge plan with her spouse prior to making a decision. Patients PCP is Radha Pop APN and she uses [facility] on [address]. There are 3 steps in her home. CM discussed availability of home health, rehab services, and medical equipment. She has a Rollator ( it is in the room ) a walker, lymphedema pump with compression wraps ( [facility]) A home CAP from [facility]. IMM served and explained. AUBREE also signed for the possibility of inpatient rehab. They will let me know on Friday on what they decide. Patient denied known discharge needs at this time. CM will continue to follow and will assist as needed with dc plans/needs. DCP REVIEW SUMMARY ANTICIPATED D/C DATE: EXPECTED LOS : CASE STATUS: DCP Initiated INITIAL REVIEW: 11/02/2020 INITIAL REVIEWER: Violet Goodwin FINAL DISCHARGE DISPOSITION: : FINAL REVIEWER: FINAL REVIEW DATE: DCP Focus Questions & Answers DCP Screen QUESTION: ANSWER High Risk Factors: : Hosp related to CHF, COPD, DM, End Stage Ds, CVA, CA DCP Evaluation QUESTION: ANSWER Patient and/or caregiver agree upon recommended discharge plan? : Yes Family / Caregiver's ability to cope with chronic illness: : a. Adequate (ability to meet patient's medical needs, ensures patient attends medical appts.) Patient's current cognitive status: : *Oriented to person, place, situation, time and present Patient gives permission to discuss discharge plans with: (name, relationship and number) : daughter and spouse Patient's ability to cope with chronic illness : c. Inadequate (3+ ED visits in 6 mos., readmits within 30 days, 2+ hospital admissions in 1 yr.) Alternate discharge plan (if recommended plan not agreed upon by patient and/or caregiver): : home with home health Does the patient have the ability to pay for or attain post discharge needs / services? : Yes Functional screen assessment: : New onset in difficulty in gait, balance, or transfer difficulties Family / Caregiver's ability to cope with chronic illness: : a. Adequate (ability to meet patient's medical needs, ensures patient attends medical appts.) Physical Status: : Mobility impaired Physical Status: : Compromised skin integrity Equipment needed for post hospitalization: : Home Oxygen with Nasal Cannula Is there a likelihood that the patient will require additional services to return to the preadmission environment? : Yes Functional screen comments: : weak,may need rehab Living Arrangements: : Home with Spouse/Significant Other Partial Dependence, assistance required for: : Ambulation / Mobility Other Equipment comments: : may need home o2?? asking for a nebulizer Results of this evaluation have been discussed with: : Children Patient with capacity for self-care or can be cared for in same environment as prior to hospitalization? : Yes Living arrangements comments: : lives with spouse and daughter Baseline cognitive status: : *Oriented to person, place, situation, time and present Physical environment modification needed / anticipated for discharge: : No Medication Management: : Patient states can afford medications Planned post hospital services available for patient? : Yes Pharmacy name(s): : [facility] Planned post hospital services covered by insurance plan? : Yes Does Patient have transportation to get home and to follow-up medical appointments when discharged from the hospital? : Yes Comments: : Mar figueroa Would patient like to participate in any Care Coordination programs (if applicable): : Not applicable Does the patient have electricity at home? : Yes Does the patient have running water in their house? : Yes Equipment in use: : Walker - Rollator Equipment in use: : Other Equipment in use: : CPAP Other Equipment comments: : walk in tub compression wraps and lymphedema pump Equipment agency name and contact information: : [employer]- cpap Mental health screen: : No mental health history Psychosocial status: : Independent adult (65+) Abuse/Neglect: : None DCP Re-evaluation QUESTION: ANSWER Would patient like to participate in any Care Coordination programs (if applicable): : Not applicable PATIENT: LARISA ELLIS ENCOUNTER: [id number] MEDICAL RECORD#: [id number] ADMISSION DATE: 11/03/2020 DISCHARGE DATE: ATTENDING MD: MERI PARRY : AGE: 70 MARITAL STATUS: M DC PLAN ID: [id number] FACILITY: [facility] PRINTED ON: 11/07/20 13:54 CT All edits/amendments must be made on the electronic document DICTATION DATE: 11/07/20 1354 PRINTS AND DRAWINGS CURATOR: ARIA 11/07/20 1354 RPT#: [id number] DC DATE: STATUS: ADM IN [facility] [address] [place] [address] END OF REPORT
[2020-11-07 14:00] VITALS: BP 184/81
--- NOTE | 2020-11-07 15:38 | MORECARE ---
CASE MANAGEMENT DISCHARGE SUMMARY PATIENT: LARISA ELLIS UNIT: [id number] ADM DATE: 11/03/20 AGE: 70 : 51 SEX: F ROOM/BED: D.2201 AUTHOR: LALITHA,DOC PHYSICIAN: REFERRING PHYSICIAN: MERI DESIR MD DATE OF SERVICE: 11/07/20 Case Management Discharge Planning Summary COMMENTS ENTERED DATE: 11/07/20 15:34 CT COMMENT TYPE: Discharge Planning REVIEWER: Violet Oscar with [facility] is here speaking with patient ENTERED DATE: 11/07/20 13:44 CT COMMENT TYPE: Discharge Planning REVIEWER: Violet Goodwin OUR INPATIENT REHAB WILL NOT ACCEPT THE PATIENT, I HAVE SENT IT TO [facility] TO SEE IF SHE IS A CANDIDATE FOR THEM CM TO FOLLOW AND ASSIST ENTERED DATE: 11/07/20 9:49 CT COMMENT TYPE: Discharge Planning REVIEWER: Violet Goodwin SPOKE WITH PATIENT AND SPOUSE THIS MORNING ABOUT INPATIENT REHAB SHE WOULD LIKE TO STAY HERE AT [facility] FOR REHAB IF POSSIBLE SHE IS WORRIED ABOUT HER SECOND COVID SHOT. SHE STATED THAT SHE IS SUPPOSE TO GET HER 2ND MODERMA VACCINE ON THE OF THIS MONTH. I SPOKE WITH DARIA GAMBLE RN ABOUT THIS CM TO FOLLOW AND ASSIST ENTERED DATE: 11/07/20 8:13 CT COMMENT TYPE: Discharge Planning REVIEWER: Violet Goodwin LATE ENTRY 11/06/20 AT 1215 CM met with patient & adult daughter to complete initial dc planning assessment. CM educated patient on the CM role and verbal consent given by patient to complete assessment. Patient lives at home with her spouse and daughter where she was independent with her care. Patient would like to discuss her discharge plan with her spouse prior to making a decision. Patients PCP is Radha Pop APN and she uses [facility] on [address]. There are 3 steps in her home. CM discussed availability of home health, rehab services, and medical equipment. She has a Rollator ( it is in the room ) a walker, lymphedema pump with compression wraps ( [facility]) A home CAP from [facility]. IMM served and explained. AUBREE also signed for the possibility of inpatient rehab. They will let me know on Friday on what they decide. Patient denied known discharge needs at this time. CM will continue to follow and will assist as needed with dc plans/needs. DCP REVIEW SUMMARY ANTICIPATED D/C DATE: EXPECTED LOS : CASE STATUS: DCP Initiated INITIAL REVIEW: 11/02/2020 INITIAL REVIEWER: Violet Goodwin FINAL DISCHARGE DISPOSITION: : FINAL REVIEWER: FINAL REVIEW DATE: DCP Focus Questions & Answers DCP Screen QUESTION: ANSWER High Risk Factors: : Hosp related to CHF, COPD, DM, End Stage Ds, CVA, CA DCP Evaluation QUESTION: ANSWER Patient and/or caregiver agree upon recommended discharge plan? : Yes Family / Caregiver's ability to cope with chronic illness: : a. Adequate (ability to meet patient's medical needs, ensures patient attends medical appts.) Patient's current cognitive status: : *Oriented to person, place, situation, time and present Patient gives permission to discuss discharge plans with: (name, relationship and number) : daughter and spouse Patient's ability to cope with chronic illness : c. Inadequate (3+ ED visits in 6 mos., readmits within 30 days, 2+ hospital admissions in 1 yr.) Alternate discharge plan (if recommended plan not agreed upon by patient and/or caregiver): : home with home health Does the patient have the ability to pay for or attain post discharge needs / services? : Yes Functional screen assessment: : New onset in difficulty in gait, balance, or transfer difficulties Family / Caregiver's ability to cope with chronic illness: : a. Adequate (ability to meet patient's medical needs, ensures patient attends medical appts.) Physical Status: : Mobility impaired Physical Status: : Compromised skin integrity Equipment needed for post hospitalization: : Home Oxygen with Nasal Cannula Is there a likelihood that the patient will require additional services to return to the preadmission environment? : Yes Functional screen comments: : weak,may need rehab Living Arrangements: : Home with Spouse/Significant Other Partial Dependence, assistance required for: : Ambulation / Mobility Other Equipment comments: : may need home o2?? asking for a nebulizer Results of this evaluation have been discussed with: : Children Patient with capacity for self-care or can be cared for in same environment as prior to hospitalization? : Yes Living arrangements comments: : lives with spouse and daughter Baseline cognitive status: : *Oriented to person, place, situation, time and present Physical environment modification needed / anticipated for discharge: : No Medication Management: : Patient states can afford medications Planned post hospital services available for patient? : Yes Pharmacy name(s): : [facility] Planned post hospital services covered by insurance plan? : Yes Does Patient have transportation to get home and to follow-up medical appointments when discharged from the hospital? : Yes Comments: : Mar figueroa Would patient like to participate in any Care Coordination programs (if applicable): : Not applicable Does the patient have electricity at home? : Yes Does the patient have running water in their house? : Yes Equipment in use: : Walker - Rollator Equipment in use: : Other Equipment in use: : CPAP Other Equipment comments: : walk in tub compression wraps and lymphedema pump Equipment agency name and contact information: : [employer]- cpap Mental health screen: : No mental health history Psychosocial status: : Independent adult (65+) Abuse/Neglect: : None DCP Re-evaluation QUESTION: ANSWER Would patient like to participate in any Care Coordination programs (if applicable): : Not applicable PATIENT: LARISA ELLIS ENCOUNTER: [id number] MEDICAL RECORD#: [id number] ADMISSION DATE: 11/03/2020 DISCHARGE DATE: ATTENDING MD: MERI PARRY : AGE: 70 MARITAL STATUS: M DC PLAN ID: [id number] FACILITY: [facility] PRINTED ON: 11/07/20 15:38 CT All edits/amendments must be made on the electronic document DICTATION DATE: 11/07/201537 DRESS FINISHER: ARIA 11/07/201537 RPT#: [id number] DC DATE: STATUS: ADM IN [facility] [address] [id number] END OF REPORT
[2020-11-07 17:29] VITALS: BP 134/69
[2020-11-07 20:00] VITALS: BP 119/54
[2020-11-08] VITALS: BP 147/74
[2020-11-08 04:00] VITALS: BP 138/67
--- NOTE | 2020-11-08 04:56 | NUR ---
aSSUMED CARE OF PT AFTER REPORT/ROUNDS. PT REMAINS A&OX4 AND VERBALIZES WANTS/NEEDS CLEARLY AND WWITHOUT HESITATION OR DIFFICULTY. dENIES PAIN/DISCOMFORT T/O THE NIGHT. PT WAS CAUGHT TRYING TO SELF TRANSFER LAST EVENING AND SAFETY TEACHING DONE BY THIS NURSE AND REITERATED BY CHARGE. BED ALARM CHECKED FOR PROPER FUNCTION AND PT HAS UTILIZED CALL LIGHT APPROPRIATELY TO REQUEST ASSISTANCE. PT IS ABLE TO EASILY GET SELF UP AND DOWN FROM BED AND WALK TO AND FROM BATHROOM WITH A STEADY GAIT AND WITHOUT DIFFICULTY OR SOBOE. RESTING IN BED AT THIS TIME.
[2020-11-08 07:23] LABS: ANION GAP 11.6 mmol/L (8-16); CALCIUM 8.7 mg/dL (8.5-10.1); CARBON DIOXIDE 27.5 mmol/L (21.0-32.0); CREATININE - SERUM 0.9 mg/dL (0.6-1.3); POTASSIUM - SERUM 4.1 mmol/L (3.5-5.1)
[2020-11-08 08:10] LABS: BASOPHILS 0.1 % (0-2); EOSINOPHILS 2.6 % (0-7); HEMATOCRIT 34.7 % (36.0-48.0); HEMOGLOBIN 11.2 g/dL (12-16); LYMPHOCYTE ABS# 1.34 10x3/uL (1.18-3.74); LYMPHOCYTES 14.3 % (15-50); MCH 29.6 pg (26.0-34.0); MCHC 32.3 g/dL (31.0-37.0); MCV 91.6 fL (80.0-100.0); MEAN PLATELET VOLUME 10.8 fL (7.4-10.4); MONOCYTES 7.2 % (2-11); NEUTROPHIL ABS# 7.03 10x3/uL (1.56-6.13); NEUTROPHILS 74.8 % (40-80); PLATELET COUNT 181 10x3/uL (130-400); RBC 3.79 10x6/uL (4.00-5.40); RDW 13.1 % (11.5-14.5); WBC 9.4 10x3/uL (4.8-10.8)
[2020-11-08 08:47] VITALS: BP 150/75
[2020-11-08] MEDS ORDERED: FLOMAX0.4 MG PO (09:07)
[2020-11-08] MEDS ORDERED: ALBUTEROL2.5 MG/3 M UPD (09:08)
[2020-11-08] MEDS ORDERED: MIRALAX17 GM PO (09:08)
[2020-11-08] MEDS ORDERED: LEVOFLOXACIN500 MG PO (09:08)
--- NOTE | 2020-11-08 09:39 | MORECARE ---
CASE MANAGEMENT DISCHARGE SUMMARY PATIENT: LARISA ELLIS UNIT: [id number] ADM DATE: 11/03/20 AGE: 70 : 51 SEX: F ROOM/BED: D.2201 AUTHOR: LALITHA,DOC PHYSICIAN: REFERRING PHYSICIAN: MERI DESIR MD DATE OF SERVICE: 11/08/20 Case Management Discharge Planning Summary COMMENTS ENTERED DATE: 11/08/20 9:32 CT COMMENT TYPE: Discharge Planning REVIEWER: Violet Goodwin PATIENT WILL BE DISCHARGING TO [facility] AT [facility] TODAY THEY WILL TRANSPORT HER, HER IS AWARE AND I ALSO LET CALIXTO WITH [facility] KNOW ABOUT THE PATIENTS CONCERN ABOUT HER SECOND COVID VACCINE SHOT THE IS TRYING TO CALL THE PHARMACY TO SEE IF SHE CAN HAVE IT TODAY AND THEY GET IT ON THE WAY TO [facility], IF NOT THEN [facility] WILL MAKE SURE SHE GETS IT. CM TO FOLLOW AND ASSIST NEEDED ENTERED DATE: 11/07/20 15:34 CT COMMENT TYPE: Discharge Planning REVIEWER: Violet Goodwin Calixto with [facility] is here speaking with patient ENTERED DATE: 11/07/20 13:44 CT COMMENT TYPE: Discharge Planning REVIEWER: Violet Goodwin OUR INPATIENT REHAB WILL NOT ACCEPT THE PATIENT, I HAVE SENT IT TO [facility] TO SEE IF SHE IS A CANDIDATE FOR THEM CM TO FOLLOW AND ASSIST ENTERED DATE: 11/07/20 9:49 CT COMMENT TYPE: Discharge Planning REVIEWER: Violet Goodwin SPOKE WITH PATIENT AND SPOUSE THIS MORNING ABOUT INPATIENT REHAB SHE WOULD LIKE TO STAY HERE AT [facility] FOR REHAB IF POSSIBLE SHE IS WORRIED ABOUT HER SECOND COVID SHOT. SHE STATED THAT SHE IS SUPPOSE TO GET HER 2ND MODERMA VACCINE ON THE OF THIS MONTH. I SPOKE WITH DARIA GAMBLE RN ABOUT THIS CM TO FOLLOW AND ASSIST ENTERED DATE: 11/07/20 8:13 CT COMMENT TYPE: Discharge Planning REVIEWER: Violet Goodwin LATE ENTRY 11/06/20 AT 1215 CM met with patient & adult daughter to complete initial dc planning assessment. CM educated patient on the CM role and verbal consent given by patient to complete assessment. Patient lives at home with her spouse and daughter where she was independent with her care. Patient would like to discuss her discharge plan with her spouse prior to making a decision. Patients PCP is Radha Pop APN and she uses [facility] on [address]. There are 3 steps in her home. CM discussed availability of home health, rehab services, and medical equipment. She has a Rollator ( it is in the room ) a walker, lymphedema pump with compression wraps ( [facility]) A home CAP from [facility]. IMM served and explained. AUBREE also signed for the possibility of inpatient rehab. They will let me know on Friday on what they decide. Patient denied known discharge needs at this time. CM will continue to follow and will assist as needed with dc plans/needs. DCP REVIEW SUMMARY ANTICIPATED D/C DATE: EXPECTED LOS : CASE STATUS: DCP Initiated INITIAL REVIEW: 11/02/2020 INITIAL REVIEWER: Violet Goodwin FINAL DISCHARGE DISPOSITION: : FINAL REVIEWER: FINAL REVIEW DATE: DCP Focus Questions & Answers DCP Screen QUESTION: ANSWER High Risk Factors: : Hosp related to CHF, COPD, DM, End Stage Ds, CVA, CA DCP Evaluation QUESTION: ANSWER Patient and/or caregiver agree upon recommended discharge plan? : Yes Family / Caregiver's ability to cope with chronic illness: : a. Adequate (ability to meet patient's medical needs, ensures patient attends medical appts.) Patient's current cognitive status: : *Oriented to person, place, situation, time and present Patient gives permission to discuss discharge plans with: (name, relationship and number) : daughter and spouse Patient's ability to cope with chronic illness : c. Inadequate (3+ ED visits in 6 mos., readmits within 30 days, 2+ hospital admissions in 1 yr.) Alternate discharge plan (if recommended plan not agreed upon by patient and/or caregiver): : home with home health Does the patient have the ability to pay for or attain post discharge needs / services? : Yes Functional screen assessment: : New onset in difficulty in gait, balance, or transfer difficulties Family / Caregiver's ability to cope with chronic illness: : a. Adequate (ability to meet patient's medical needs, ensures patient attends medical appts.) Physical Status: : Mobility impaired Physical Status: : Compromised skin integrity Equipment needed for post hospitalization: : Home Oxygen with Nasal Cannula Is there a likelihood that the patient will require additional services to return to the preadmission environment? : Yes Functional screen comments: : weak,may need rehab Living Arrangements: : Home with Spouse/Significant Other Partial Dependence, assistance required for: : Ambulation / Mobility Other Equipment comments: : may need home o2?? asking for a nebulizer Results of this evaluation have been discussed with: : Children Patient with capacity for self-care or can be cared for in same environment as prior to hospitalization? : Yes Living arrangements comments: : lives with spouse and daughter Baseline cognitive status: : *Oriented to person, place, situation, time and present Physical environment modification needed / anticipated for discharge: : No Medication Management: : Patient states can afford medications Planned post hospital services available for patient? : Yes Pharm[facility] name(s): [facility] Planned post hospital services covered by insurance plan? : Yes Does Patient have transportation to get home and to follow-up medical appointments when discharged from the hospital? : Yes Comments: : daughterMar Would patient like to participate in any Care Coordination programs (if applicable): : Not applicable Does the patient have electricity at home? : Yes Does the patient have running water in their house? : Yes Equipment in use: : Walker - Rollator Equipment in use: : Other Equipment in use: : CPAP Other Equipment comments: : walk in tub compression wraps and lymphedema pump Equipment agency name and contact information: : [employer] [facility] Mental health screen: : No mental health history Psychosocial status: : Independent adult (65+) Abuse/Neglect: : None DCP Re-evaluation QUESTION: ANSWER Would patient like to participate in any Care Coordination programs (if applicable): : Not applicable PATIENT: LARISA ELLIS ENCOUNTER: [id number] MEDICAL RECORD#: [id number] ADMISSION DATE: 11/03/2020 DISCHARGE DATE: ATTENDING MD: MERI PARRY : AGE: 70 MARITAL STATUS: M DC PLAN ID: [id number] FACILITY: [facility] PRINTED ON: 11/08/20 9:39 CT All edits/amendments must be made on the electronic document DICTATION DATE: 11/08/20938 PHYSICAL THERAPY ASSISTANT INSTRUCTOR: ARIA 11/08/20938 RPT#: [id number] DC DATE: STATUS: ADM IN [facility] [address] [place] [address] END OF REPORT
--- NOTE | 2020-11-08 10:03 | NUR ---
RESTING IN BED, NO DISTRESS NOTED, SL IN PLACE, O2 PER NC,
[2020-11-08 12:25] VITALS: BP 144/72
--- NOTE | 2020-11-08 12:30 | NUR ---
REPORT CALLED TO [facility], IV REMOVED, TIP INTACT
--- NOTE | 2020-11-08 14:01 | NUR ---
OT NOTE: CHECKED ON PT SEVERAL TIMES IN AM.. SHE REQUESTED TO COME BACK PT WAS WRAPPING HER LES FOR EDEMA CONTROL. ON FINAL ATTEMPT, PT WAS DRESSED AND SITTING UP ON EOB. SHE REPORTED FEELING VERY TIRED BUT FEELING BETTER THAN PREVIOUS DAYS. STATES THAT SHE IS SUPPOSED TO BE GOING TO IP REHAB TODAY. PT ABLE TO PERFORM SIT TO STAND WITH CGA; CGA TO AMB FROM BED TO TOILET; TOILET TRANSFERS WITH MIN ASSIST BUT INCREASED DIFFICULTY STANDING UP FROM TOILET. AMB INTO HALLWAY WITH 3L02 X APPROX 75 FT.. 02 SATS REMAINED AROUND 97% WITH USE OF 02..SIMPLE GROOMING WITH SET UP.. PT WILL DO WELL IN REHAB AND WILL HOPEFULLY RETURN TO PLOF. PT REPORS THAT SHE DOESNT WANT TO HAVE TO USE O2 IF POSSIBLE, BECAUSE SHE WAS NOT HAVING TO USE IT AT HOME. SHELTON STEWART, OTR/L [phone]
--- NOTE | 2020-11-08 14:30 | NUR ---
TAKEN FROM HOSPITAL PER WC
--- NOTE | 2020-11-08 14:56 | MORECARE ---
CASE MANAGEMENT DISCHARGE SUMMARY PATIENT: LARISA ELLIS UNIT: [id number] ADM DATE: 11/03/20 AGE: 70 : 51 SEX: F ROOM/BED: D.2201 AUTHOR: LALITHA,DOC PHYSICIAN: REFERRING PHYSICIAN: MERI DESIR MD DATE OF SERVICE: 11/08/20 Case Management Discharge Planning Summary COMMENTS ENTERED DATE: 11/08/20 14:40 CT COMMENT TYPE: Discharge Planning REVIEWER: Violet Goodwin PATIENT WAS DISCHARGED TO ROOM 319 AT [facility] ENTERED DATE: 11/08/20 9:32 CT COMMENT TYPE: Discharge Planning REVIEWER: Violet Goodwin PATIENT WILL BE DISCHARGING TO [facility] REH[facility] AT [facility] TODAY THEY WILL TRANSPORT HER, HER IS AWARE AND I ALSO LET CALIXTO WITH [facility] KNOW ABOUT THE PATIENTS CONCERN ABOUT HER SECOND COVID VACCINE SHOT THE IS TRYING TO CALL THE PHARMACY TO SEE IF SHE CAN HAVE IT TODAY AND THEY GET IT ON THE WAY TO [facility], IF NOT THEN [facility] WILL MAKE SURE SHE GETS IT. CM TO FOLLOW AND ASSIST NEEDED ENTERED DATE: 11/07/20 15:34 CT COMMENT TYPE: Discharge Planning REVIEWER: Violet Goodwin Calixto with [facility] is here speaking with patient ENTERED DATE: 11/07/20 13:44 CT COMMENT TYPE: Discharge Planning REVIEWER: Violet Goodwin OUR INPATIENT REHAB WILL NOT ACCEPT THE PATIENT, I HAVE SENT IT TO [facility] TO SEE IF SHE IS A CANDIDATE FOR THEM CM TO FOLLOW AND ASSIST ENTERED DATE: 11/07/20 9:49 CT COMMENT TYPE: Discharge Planning REVIEWER: Violet Goodwin SPOKE WITH PATIENT AND SPOUSE THIS MORNING ABOUT INPATIENT REHAB SHE WOULD LIKE TO STAY HERE AT [facility] FOR REHAB IF POSSIBLE SHE IS WORRIED ABOUT HER SECOND COVID SHOT. SHE STATED THAT SHE IS SUPPOSE TO GET HER 2ND MODERMA VACCINE ON THE OF THIS MONTH. I SPOKE WITH DARIA GAMBLE RN ABOUT THIS CM TO FOLLOW AND ASSIST ENTERED DATE: 11/07/20 8:13 CT COMMENT TYPE: Discharge Planning REVIEWER: Violet Goodwin LATE ENTRY 11/06/20 AT 1215 CM met with patient & adult daughter to complete initial dc planning assessment. CM educated patient on the CM role and verbal consent given by patient to complete assessment. Patient lives at home with her spouse and daughter where she was independent with her care. Patient would like to discuss her discharge plan with her spouse prior to making a decision. Patients PCP is Radha Pop APN and she uses [facility] on [address]. There are 3 steps in her home. CM discussed availability of home health, rehab services, and medical equipment. She has a Rollator ( it is in the room ) a walker, lymphedema pump with compression wraps ( [facility]) A home CAP from [facility]. IMM served and explained. AUBREE also signed for the possibility of inpatient rehab. They will let me know on Friday on what they decide. Patient denied known discharge needs at this time. CM will continue to follow and will assist as needed with dc plans/needs. DCP REVIEW SUMMARY ANTICIPATED D/C DATE: EXPECTED LOS : CASE STATUS: DCP Initiated INITIAL REVIEW: 11/02/2020 INITIAL REVIEWER: Violet Goodwin FINAL DISCHARGE DISPOSITION: : FINAL REVIEWER: FINAL REVIEW DATE: DCP Focus Questions & Answers DCP Screen QUESTION: ANSWER High Risk Factors: : Hosp related to CHF, COPD, DM, End Stage Ds, CVA, CA DCP Evaluation QUESTION: ANSWER Patient and/or caregiver agree upon recommended discharge plan? : Yes Family / Caregiver's ability to cope with chronic illness: : a. Adequate (ability to meet patient's medical needs, ensures patient attends medical appts.) Patient's current cognitive status: : *Oriented to person, place, situation, time and present Patient gives permission to discuss discharge plans with: (name, relationship and number) : daughter and spouse Patient's ability to cope with chronic illness : c. Inadequate (3+ ED visits in 6 mos., readmits within 30 days, 2+ hospital admissions in 1 yr.) Alternate discharge plan (if recommended plan not agreed upon by patient and/or caregiver): : home with home health Does the patient have the ability to pay for or attain post discharge needs / services? : Yes Functional screen assessment: : New onset in difficulty in gait, balance, or transfer difficulties Family / Caregiver's ability to cope with chronic illness: : a. Adequate (ability to meet patient's medical needs, ensures patient attends medical appts.) Physical Status: : Mobility impaired Physical Status: : Compromised skin integrity Equipment needed for post hospitalization: : Home Oxygen with Nasal Cannula Is there a likelihood that the patient will require additional services to return to the preadmission environment? : Yes Functional screen comments: : weak,may need rehab Living Arrangements: : Home with Spouse/Significant Other Partial Dependence, assistance required for: : Ambulation / Mobility Other Equipment comments: : may need home o2?? asking for a nebulizer Results of this evaluation have been discussed with: : Children Patient with capacity for self-care or can be cared for in same environment as prior to hospitalization? : Yes Living arrangements comments: : lives with spouse and daughter Baseline cognitive status: : *Oriented to person, place, situation, time and present Physical environment modification needed / anticipated for discharge: : No Medication Management: : Patient states can afford medications Planned post hospital services available for patient? : Yes Pharm[facility] name([facility]): : [facility] Planned post hospital services covered by insurance plan? : Yes Does Patient have transportation to get home and to follow-up medical appointments when discharged from the hospital? : Yes Comments: : Mar figueroa Would patient like to participate in any Care Coordination programs (if applicable): : Not applicable Does the patient have electricity at home? : Yes Does the patient have running water in their house? : Yes Equipment in use: : Walker - Rollator Equipment in use: : Other Equipment in use: : CPAP Other Equipment comments: : walk in tub compression wraps and lymphedema pump Equipment agency name and contact information: : [employer]- cpap Mental health screen: : No mental health history Psychosocial status: : Independent adult (65+) Abuse/Neglect: : None DCP Re-evaluation QUESTION: ANSWER Would patient like to participate in any Care Coordination programs (if applicable): : Not applicable PATIENT: LARISA ELLIS ENCOUNTER: [id number] MEDICAL RECORD#: [id number] ADMISSION DATE: 11/03/2020 DISCHARGE DATE: ATTENDING MD: MERI PARRY : AGE: 70 MARITAL STATUS: M DC PLAN ID: [id number] FACILITY: [facility] PRINTED ON: 11/08/20 14:55 CT All edits/amendments must be made on the electronic document DICTATION DATE: 11/08/201454 IRON SETTER: ARIA 11/08/201454 RPT#: [id number] DC DATE: STATUS: ADM IN [facility] [address] [place] [address] END OF REPORT
--- NOTE | 2020-11-08 15:09 | MORECARE ---
CASE MANAGEMENT DISCHARGE SUMMARY PATIENT: LARISA ELLIS UNIT: [id number] ADM DATE: 11/03/20 AGE: 70 : 51 SEX: F ROOM/BED: D.2201 AUTHOR: LALITHA,DOC PHYSICIAN: REFERRING PHYSICIAN: MERI DESIR MD DATE OF SERVICE: 11/08/20 Case Management Discharge Planning Summary COMMENTS ENTERED DATE: 11/08/20 14:40 CT COMMENT TYPE: Discharge Planning REVIEWER: Violet Goodwin PATIENT WAS DISCHARGED TO ROOM 319 AT [facility] ENTERED DATE: 11/08/20 9:32 CT COMMENT TYPE: Discharge Planning REVIEWER: Violet Goodwin PATIENT WILL BE DISCHARGING TO [facility] AT [facility] TODAY THEY WILL TRANSPORT HER, HER IS AWARE AND I ALSO LET CALIXTO WITH [facility] KNOW ABOUT THE PATIENTS CONCERN ABOUT HER SECOND COVID VACCINE SHOT THE IS TRYING TO CALL THE PHARMACY TO SEE IF SHE CAN HAVE IT TODAY AND THEY GET IT ON THE WAY TO [facility], IF NOT THEN [facility] WILL MAKE SURE SHE GETS IT. CM TO FOLLOW AND ASSIST NEEDED ENTERED DATE: 11/07/20 15:34 CT COMMENT TYPE: Discharge Planning REVIEWER: Violet Goodwin Calixto with [facility] is here speaking with patient ENTERED DATE: 11/07/20 13:44 CT COMMENT TYPE: Discharge Planning REVIEWER: Violet Goodwin OUR INPATIENT REHAB WILL NOT ACCEPT THE PATIENT, I HAVE SENT IT TO [facility] TO SEE IF SHE IS A CANDIDATE FOR THEM CM TO FOLLOW AND ASSIST ENTERED DATE: 11/07/20 9:49 CT COMMENT TYPE: Discharge Planning REVIEWER: Violet Goodwin SPOKE WITH PATIENT AND SPOUSE THIS MORNING ABOUT INPATIENT REHAB SHE WOULD LIKE TO STAY HERE AT [facility] FOR REHAB IF POSSIBLE SHE IS WORRIED ABOUT HER SECOND COVID SHOT. SHE STATED THAT SHE IS SUPPOSE TO GET HER 2ND MODERMA VACCINE ON THE OF THIS MONTH. I SPOKE WITH DARIA GAMBLE RN ABOUT THIS CM TO FOLLOW AND ASSIST ENTERED DATE: 11/07/20 8:13 CT COMMENT TYPE: Discharge Planning REVIEWER: Violet Goodwin LATE ENTRY 11/06/20 AT 1215 CM met with patient & adult daughter to complete initial dc planning assessment. CM educated patient on the CM role and verbal consent given by patient to complete assessment. Patient lives at home with her spouse and daughter where she was independent with her care. Patient would like to discuss her discharge plan with her spouse prior to making a decision. Patients PCP is Radha Pop APN and she uses [facility] on [address]. There are 3 steps in her home. CM discussed availability of home health, rehab services, and medical equipment. She has a Rollator ( it is in the room ) a walker, lymphedema pump with compression wraps ( [facility]) A home CAP from [facility]. IMM served and explained. AUBREE also signed for the possibility of inpatient rehab. They will let me know on Friday on what they decide. Patient denied known discharge needs at this time. CM will continue to follow and will assist as needed with dc plans/needs. DCP REVIEW SUMMARY ANTICIPATED D/C DATE: EXPECTED LOS : CASE STATUS: DCP Initiated INITIAL REVIEW: 11/02/2020 INITIAL REVIEWER: Violet Goodwin FINAL DISCHARGE DISPOSITION: : FINAL REVIEWER: FINAL REVIEW DATE: DCP Focus Questions & Answers DCP Screen QUESTION: ANSWER High Risk Factors: : Hosp related to CHF, COPD, DM, End Stage Ds, CVA, CA DCP Evaluation QUESTION: ANSWER Patient and/or caregiver agree upon recommended discharge plan? : Yes Family / Caregiver's ability to cope with chronic illness: : a. Adequate (ability to meet patient's medical needs, ensures patient attends medical appts.) Patient's current cognitive status: : *Oriented to person, place, situation, time and present Patient gives permission to discuss discharge plans with: (name, relationship and number) : daughter and spouse Patient's ability to cope with chronic illness : c. Inadequate (3+ ED visits in 6 mos., readmits within 30 days, 2+ hospital admissions in 1 yr.) Alternate discharge plan (if recommended plan not agreed upon by patient and/or caregiver): : home with home health Does the patient have the ability to pay for or attain post discharge needs / services? : Yes Functional screen assessment: : New onset in difficulty in gait, balance, or transfer difficulties Family / Caregiver's ability to cope with chronic illness: : a. Adequate (ability to meet patient's medical needs, ensures patient attends medical appts.) Physical Status: : Mobility impaired Physical Status: : Compromised skin integrity Equipment needed for post hospitalization: : Home Oxygen with Nasal Cannula Is there a likelihood that the patient will require additional services to return to the preadmission environment? : Yes Functional screen comments: : weak,may need rehab Living Arrangements: : Home with Spouse/Significant Other Partial Dependence, assistance required for: : Ambulation / Mobility Other Equipment comments: : may need home o2?? asking for a nebulizer Results of this evaluation have been discussed with: : Children Patient with capacity for self-care or can be cared for in same environment as prior to hospitalization? : Yes Living arrangements comments: : lives with spouse and daughter Baseline cognitive status: : *Oriented to person, place, situation, time and present Physical environment modification needed / anticipated for discharge: : No Medication Management: : Patient states can afford medications Planned post hospital services available for patient? : Yes Pharm[facility] : [facility] Planned post hospital services covered by insurance plan? : Yes Does Patient have transportation to get home and to follow-up medical appointments when discharged from the hospital? : Yes Comments: : Mar figueroa Would patient like to participate in any Care Coordination programs (if applicable): : Not applicable Does the patient have electricity at home? : Yes Does the patient have running water in their house? : Yes Equipment in use: : Walker - Rollator Equipment in use: : Other Equipment in use: : CPAP Other Equipment comments: : walk in tub compression wraps and lymphedema pump Equipment agency name and contact information: : [employer]- cpap Mental health screen: : No mental health history Psychosocial status: : Independent adult (65+) Abuse/Neglect: : None DCP Re-evaluation QUESTION: ANSWER Would patient like to participate in any Care Coordination programs (if applicable): : Not applicable PATIENT: LARISA ELLIS ENCOUNTER: [id number] MEDICAL RECORD#: [id number] ADMISSION DATE: 11/03/2020 DISCHARGE DATE: 11/08/2020 ATTENDING MD: MERI PARRY : AGE: 70 MARITAL STATUS: M DC PLAN ID: [id number] FACILITY: [facility] PRINTED ON: 11/08/20 15:09 CT All edits/amendments must be made on the electronic document DICTATION DATE: 11/08/20 1509 ORE FIELDER: ARIA 11/08/20 1509 RPT#: [id number] DC DATE:11/08/20 STATUS: DIS IN [facility] [address] [place] [address] END OF REPORT
--- NOTE | 2020-11-09 15:40 | MORECARE ---
CASE MANAGEMENT DISCHARGE SUMMARY PATIENT: LARISA ELLIS UNIT: [id number] ADM DATE: 11/03/20 AGE: 70 : 52 SEX: F ROOM/BED: D.2201 AUTHOR: LALITHA,DOC PHYSICIAN: REFERRING PHYSICIAN: MERI DESIR MD DATE OF SERVICE: 11/09/20 Case Management Discharge Planning Summary COMMENTS ENTERED DATE: 11/08/20 14:40 CT COMMENT TYPE: Discharge Planning REVIEWER: Violet Goodwin PATIENT WAS DISCHARGED TO ROOM [address] [facility] ENTERED DATE: 11/08/20 9:32 CT COMMENT TYPE: Discharge Planning REVIEWER: Violet Goodwin PATIENT WILL BE DISCHARGING TO [facility] AT [facility] TODAY THEY WILL TRANSPORT HER, HER IS AWARE AND I ALSO LET CALIXTO WITH [facility] KNOW ABOUT THE PATIENTS CONCERN ABOUT HER SECOND COVID VACCINE SHOT THE IS TRYING TO CALL THE PHARMACY TO SEE IF SHE CAN HAVE IT TODAY AND THEY GET IT ON THE WAY TO [facility], IF NOT THEN [facility] WILL MAKE SURE SHE GETS IT. CM TO FOLLOW AND ASSIST NEEDED ENTERED DATE: 11/07/20 15:34 CT COMMENT TYPE: Discharge Planning REVIEWER: Violet Goodwin Calixto with [facility] is here speaking with patient ENTERED DATE: 11/07/20 13:44 CT COMMENT TYPE: Discharge Planning REVIEWER: Violet Goodwin OUR INPATIENT REHAB WILL NOT ACCEPT THE PATIENT, I HAVE SENT IT TO [facility] TO SEE IF SHE IS A CANDIDATE FOR THEM CM TO FOLLOW AND ASSIST ENTERED DATE: 11/07/20 9:49 CT COMMENT TYPE: Discharge Planning REVIEWER: Violet Goodwin SPOKE WITH PATIENT AND SPOUSE THIS MORNING ABOUT INPATIENT REHAB SHE WOULD LIKE TO STAY HERE AT [facility] FOR REHAB IF POSSIBLE SHE IS WORRIED ABOUT HER SECOND COVID SHOT. SHE STATED THAT SHE IS SUPPOSE TO GET HER 2ND MODERMA VACCINE ON THE OF THIS MONTH. I SPOKE WITH DARIA GAMBLE RN ABOUT THIS CM TO FOLLOW AND ASSIST ENTERED DATE: 11/07/20 8:13 CT COMMENT TYPE: Discharge Planning REVIEWER: Violet Goodwin LATE ENTRY 11/06/20 AT 1215 CM met with patient & adult daughter to complete initial dc planning assessment. CM educated patient on the CM role and verbal consent given by patient to complete assessment. Patient lives at home with her spouse and daughter where she was independent with her care. Patient would like to discuss her discharge plan with her spouse prior to making a decision. Patients PCP is Radha Pop APN and she uses [facility] [address]. There are 3 steps in her home. CM discussed availability of home health, rehab services, and medical equipment. She has a Rollator ( it is in the room ) a walker, lymphedema pump with compression wraps ( [facility]) A home CAP from [facility], [place]. IMM served and explained. AUBREE also signed for the possibility of inpatient rehab. They will let me know on Friday on what they decide. Patient denied known discharge needs at this time. CM will continue to follow and will assist as needed with dc plans/needs. DCP REVIEW SUMMARY ANTICIPATED D/C DATE: EXPECTED LOS : CASE STATUS: DCP Initiated INITIAL REVIEW: 11/02/2020 INITIAL REVIEWER: Violet Goodwin FINAL DISCHARGE DISPOSITION: : FINAL REVIEWER: FINAL REVIEW DATE: DCP Focus Questions & Answers DCP Screen QUESTION: ANSWER High Risk Factors: : Hosp related to CHF, COPD, DM, End Stage Ds, CVA, CA DCP Evaluation QUESTION: ANSWER Patient and/or caregiver agree upon recommended discharge plan? : Yes Family / Caregiver's ability to cope with chronic illness: : a. Adequate (ability to meet patient's medical needs, ensures patient attends medical appts.) Patient's current cognitive status: : *Oriented to person, place, situation, time and present Patient gives permission to discuss discharge plans with: (name, relationship and number) : daughter and spouse Patient's ability to cope with chronic illness : c. Inadequate (3+ ED visits in 6 mos., readmits within 30 days, 2+ hospital admissions in 1 yr.) Alternate discharge plan (if recommended plan not agreed upon by patient and/or caregiver): : home with home health Does the patient have the ability to pay for or attain post discharge needs / services? : Yes Functional screen assessment: : New onset in difficulty in gait, balance, or transfer difficulties Family / Caregiver's ability to cope with chronic illness: : a. Adequate (ability to meet patient's medical needs, ensures patient attends medical appts.) Physical Status: : Mobility impaired Physical Status: : Compromised skin integrity Equipment needed for post hospitalization: : Home Oxygen with Nasal Cannula Is there a likelihood that the patient will require additional services to return to the preadmission environment? : Yes Functional screen comments: : weak,may need rehab Living Arrangements: : Home with Spouse/Significant Other Partial Dependence, assistance required for: : Ambulation / Mobility Other Equipment comments: : may need home o2?? asking for a nebulizer Results of this evaluation have been discussed with: : Children Patient with capacity for self-care or can be cared for in same environment as prior to hospitalization? : Yes Living arrangements comments: : lives with spouse and daughter Baseline cognitive status: : *Oriented to person, place, situation, time and present Physical environment modification needed / anticipated for discharge: : No Medication Management: : Patient states can afford medications Planned post hospital services available for patient? : Yes Pharmacy name(s): : [facility] Planned post hospital services covered by insurance plan? : Yes Does Patient have transportation to get home and to follow-up medical appointments when discharged from the hospital? : Yes Comments: : Mar figueroa Would patient like to participate in any Care Coordination programs (if applicable): : Not applicable Does the patient have electricity at home? : Yes Does the patient have running water in their house? : Yes Equipment in use: : Walker - Rollator Equipment in use: : Other Equipment in use: : CPAP Other Equipment comments: : walk in tub compression wraps and lymphedema pump Equipment agency name and contact information: : [employer] Mental health screen: : No mental health history Psychosocial status: : Independent adult (65+) Abuse/Neglect: : None DCP Re-evaluation QUESTION: ANSWER Would patient like to participate in any Care Coordination programs (if applicable): : Not applicable PATIENT: LARISA ELLIS ENCOUNTER: [id number] MEDICAL RECORD#: [id number] ADMISSION DATE: 11/03/2020 DISCHARGE DATE: 11/08/2020 ATTENDING MD: MERI PARRY : AGE: 70 MARITAL STATUS: M DC PLAN ID: [id number] FACILITY: [facility] PRINTED ON: 11/09/20 15:40 CT All edits/amendments must be made on the electronic document DICTATION DATE: 11/09/20 154 ACADEMIC ADVISING DIRECTOR: ARIA 11/09/20 1540 RPT#: [id number] DC DATE:11/08/20 STATUS: DIS IN [facility] [address] [place] [address] END OF REPORT
== END 2020-11-08 15:06 | DRG 690 ==
LOC: D.ER 18:40 → D.MS 23:23 → D.M2 23:23 → OBSVTIME 23:24 → D.MS 11-03 05:23
PROVIDERS: Family Medicine; ADMIT Family Medicine; ATTEND Family Medicine
DX: N39.0 Urinary tract infection, site not specified (principal); Z68.43 Body mass index [BMI] 50.0-59.9, adult; E66.01 Morbid (severe) obesity due to excess calories; I10 Essential (primary) hypertension; E78.5 Hyperlipidemia, unspecified; I73.9 Peripheral vascular disease, unspecified; G47.33 Obstructive sleep apnea (adult) (pediatric); N20.0 Calculus of kidney; N13.30 Unspecified hydronephrosis

== ENCOUNTER → 2021-01-01 10:35 | Outpatient (CLI) | payer MEDICARE, OTHER ==
[2020-11-03 00:51] VITALS: BMI 59.6
[~2021-01-01 10:35] MED LIST changes: +ALBUTEROL2.5 MG/3 M UPD; +FLOMAX0.4 MG PO; +LEVOFLOXACIN500 MG PO; +MIRALAX17 GM PO
== END | disposition home or self-care (01) ==
LOC: D.US 10:35
PROVIDERS: ATTEND Internal Medicine Interventional Cardiology
DX: I70.202 Unspecified atherosclerosis of native arteries of extremities, left leg (principal); I70.291 Other atherosclerosis of native arteries of extremities, right leg

== ENCOUNTER → 2021-01-08 07:34 | Outpatient (CLI) | payer MEDICARE, OTHER ==
[2020-11-03 00:51] VITALS: BMI 59.6
== END | disposition home or self-care (01) ==
LOC: D.CT 07:34
PROVIDERS: ATTEND Internal Medicine Interventional Cardiology
DX: I73.9 Peripheral vascular disease, unspecified (principal)